=== PATIENT | female | born 1950 | race African-American/Black ===

== ENCOUNTER 2017-07-13 22:22 | Emergency (ER) | payer OTHER ==
[2017-07-13 22:31] VITALS: BP 155/71; PULSE 81; TEMP 98.6; BMI 44.2
[2017-07-13] MEDS ORDERED: KETOROLAC TROMETHAMINE 60 MG/2 ML VIAL IM ONE (23:39)
--- NOTE | 2017-07-13 23:40 | PDOC ---
History of Present Illness - General Chief Complaint: Pain Stated Complaint: PAIN Time Seen by Provider: 07/13/17 22:55 History Source: Patient Exam Limitations: No Limitations - History of Present Illness Initial Comments: CHIEF COMPLAINT: 66 y/o afebrile female c/o left sided low back pain radiating down to her foot x 3 days. HISTORY OF PRESENT ILLNESS: The patient states this is sciatica pain because she has had it in the past. She was prescribed gabapentin but states it doesn' t work. She denies saddle anesthesia, back trauma, fall, numbness/tingling in LEs. Vital signs on arrival are within normal limits. REVIEW OF SYSTEMS: GENERAL/CONSTITUTIONAL: No fever/chills. No weakness. No weight change. GENITOURINARY: No dysuria, frequency, or change in urination. MUSCULOSKELETAL: +left low back pain radiating down to left foot. No joint or muscle swelling or pain. No neck pain. SKIN: No rash or easy bruising. NEUROLOGIC: No headache, vertigo, loss of consciousness, or loss of sensation. PHYSICAL EXAM: VITAL_SIGNS: within normal limits GENERAL_APPEARANCE: alert, cooperative, no obvious discomfort. MENTAL_STATUS: speech clear, oriented X 3, responds appropriately to questions. BACK: Pain with palpation of left buttock and left hip. No midline lumbar vertebral TTP or step offs. NEURO: motor intact and sensory intact in injured extremity. No saddle anesthesia. EXTREMITIES: FROM of left leg and hip. SKIN: warm, dry, good color. Past History - Past Medical History Allergies/Adverse Reactions: Allergies Allergy/AdvReac Type Severity Reaction Status Date / Time prednisone Allergy Intermediate Itching Verified 07/13/17 22:29 Home Medications: Ambulatory Orders Albuterol Sulfate Inhaler - [Ventolin Hfa Inhaler -] 1 - 2 inh PO Q4H 01/22/17 Azithromycin [Zithromax -] 250 mg PO DAILY 01/22/17 Doxycycline Hyclate [Vibramycin -] 100 mg PO DAILY #7 cap 01/22/17 Ibuprofen 800 mg PO DAILY PRN 01/22/17 Methimazole [Tapazole -] 5 mg PO DAILY 01/22/17 Ondansetron [Zofran -] 8 mg PO TID PRN 01/22/17 Prednisone 0 mg PO DAILY 01/22/17 Cyclobenzaprine HCl [Flexeril -] 10 mg PO TID #15 tablet 07/13/17 Naproxen 500 mg PO BID #20 tablet. 07/13/17 Asthma: Yes COPD: No HTN: Yes Psychiatric Problems: Yes (ANXIETY.) Thyroid Disease: Yes (HYPO.) - Immunization History Immunization Up to Date: Yes - Suicide/Smoking/Psychosocial Hx Smoking Status: No Smoking History: Never smoked Have you smoked in the past 12 months: No Number of Cigarettes Smoked Daily: 0 Hx Alcohol Use: No Drug/Substance Use Hx: No Substance Use Type: None *Physical Exam - Vital Signs Last Vital Signs Temp Pulse Resp BP Pulse Ox 98.6 F 81 20 155/71 99 07/13/17 22:29 07/13/17 22:29 07/13/17 22:29 07/13/17 22:29 07/13/17 22:29 Medical Decision Making - Medical Decision Making A/P: 66 y/o afebrile female with left sided sciatica. Plan is as follows: 1. IM toradol Patient is driving home. Will send rx for naproxen and flexeril to her pharmacy. Informed her flexeril causes drowsiness. Suggested f/u with her doctor and return to the ER with any worsening or concerning symptoms. The patient verbalizes understanding of all instructions, has no further questions and is awaiting discharge. *DC/Admit/Observation/Transfer Diagnosis at time of Disposition: Sciatica of left side - Discharge Dispostion Disposition: HOME Condition at time of disposition: Good - Referrals Referrals: Irina Jean [Primary Care Provider] - Call tomorrow - Patient Instructions Printed Discharge Instructions: DI for Back Pain With Sciatica Additional Instructions: Discharge Instructions: -You have sciatic pain -2 prescriptions have been sent to your pharmacy for pain; flexeril may cause drowsiness -Please follow up with your doctor within 1 week -Return to the ER with any worsening or concerning symptoms - Post Discharge Activity
[2017-07-13] MEDS ORDERED: KETOROLAC TROMETHAMINE 60 MG/2 ML VIAL ONE (23:41)
== END 2017-07-14 00:06 | disposition home or self-care (01) ==
LOC: JER 22:22
PROC: 3E0233Z Introduction of Anti-inflammatory into Muscle, Percutaneous Approach (ICD-10-PCS; principal; 2017-07-13)
DX: M54.32 Sciatica, left side (principal); J45.909 Unspecified asthma, uncomplicated; I10 Essential (primary) hypertension; F41.9 Anxiety disorder, unspecified; E03.9 Hypothyroidism, unspecified
CPT/HCPCS: 96372; 99282-25